=== PATIENT | male | born 1960 | race Caucasian/White ===

== ENCOUNTER 2024-12-04 09:37 | Day surgery (SDC) | payer OTHER, SELFPAY ==
[2024-12-04 10:30] VITALS: BP 157/78; PULSE 71; RESP 16; TEMP 36.4; O2SAT 96
[2024-12-04] MEDS: LACTATED RINGERS 1,000 ML 42 ML IV (10:35)
--- NOTE | 2024-12-04 10:54 | PM.HP.IH.1 ---
History of Present Illness History of Present Illness Date Patient Seen: 12/04/24 Chief complaint: Colonoscopy Narrative: Colorectal cancer screening PFSH Social History Smoking Status: Never smoker alcohol intake: current Meds Home Medications and Allergies Home Medications ?Medication ?Instructions ?Recorded ?Confirmed ?Type No Known Home Medications 12/04/24 12/04/24 History Allergies Allergy/AdvReac Type Severity Reaction Status Date / Time No Known Drug Allergies Allergy Verified 12/04/24 10:25 Exam Vital Signs (past 8 hours): - 12/04/24 10:30 Temperature 97.5 F L Pulse Rate 71 Respiratory Rate 16 Blood Pressure 157/78 H Pulse Oximetry 96 Oxygen Delivery Method Room Air Oxygen Delivery Method Room Air Assessment & Plan Assessment & Plan narrative: Colorectal cancer screening need for colonoscopy. Risks, benefits, alternatives have been explained. Time-Based Coding :: [TOTAL MINUTES] spent with patient and on the chart (including review of chart, obtaining history, exam, reviewing outside data, placing orders, documenting exam and treatment plan, and counseling patient) on [DATE]. [employer] Health Education Specialist Document charge(s): No
--- NOTE | 2024-12-04 10:55 | PM.OP.COLON ---
Operative Date/Time/Diagnoses Date of procedure: 12/04/24 Time of procedure: 11:13 Pre-op diagnosis: See indication and findings Post-op diagnosis: same Procedure & Clinicians Study performed: Colonoscopy Same procedure(s) as scheduled: Yes Indications: Screening Surgeon: Pop Sr Anesthesia Type: Other Procedure Notes Procedure in detail: After informed consent was obtained the patient was placed in left lateral decubitus position. The video colonoscope was introduced the rectum slowly advanced cecum. Preparation was good. On slow withdrawal mucosa was carefully examined. The scope was removed. Patient procedure well. Blood loss none Complications none Sedation mac Findings 1. Normal colonoscopy to cecum Patient should have follow-up colonoscopy in 10 years
[2024-12-04] MEDS: ACETAMINOPHEN IV 1,000 MG/100 ML VIAL 400 MG IV (11:15)
[2024-12-04 11:16] VITALS: BP 93/60; PULSE 78; RESP 18; TEMP 36.2; O2SAT 95
[2024-12-04 11:21] VITALS: BP 96/63; PULSE 74; RESP 10; O2SAT 95
[2024-12-04 11:26] VITALS: BP 102/69; PULSE 87; RESP 14; O2SAT 96
[2024-12-04 11:30] VITALS: BP 102/76; PULSE 78; RESP 11; O2SAT 96
== END 2024-12-04 11:39 | disposition home or self-care (01) ==
PROVIDERS: PCP Nurse Practitioner Primary Care; Referring Provider Internal Medicine Gastroenterology; Visit Provider Internal Medicine Gastroenterology
PROC: 0DJD8ZZ Inspection of Lower Intestinal Tract, Via Natural or Artificial Opening Endoscopic (ICD-10-PCS; CPT 45378; principal; 2024-12-04 11:00)
DX: Z12.11 Encounter for screening for malignant neoplasm of colon (principal)
CPT/HCPCS: G0121; J0131; J2405; J2704